=== PATIENT | female | born 1975 | race Caucasian/White ===

== ENCOUNTER 2017-07-29 19:41 | Emergency (ER) | payer OTHER ==
[2017-07-29 19:49] VITALS: BP 128/64; BMI 22.7
[2017-07-29] MEDS ORDERED: STERILE WATER IRRIGATION IR ONE ×2 (19:59)
[2017-07-29] MEDS ORDERED: XYLOCAINE 2 % (PLAIN) ONE (20:06)
[2017-07-29] MEDS ORDERED: XYLOCAINE 2 % (PLAIN) IJ ONE (20:06)
--- NOTE | 2017-07-29 20:14 | DR.GENAD ---
HPI - PCP Primary Care Physician: LIVIA SKINNER - HPI Comment HPI Comment: Was burning trash and felt something fly into her right ear. She tried to get it out and was unsuccessful. Pt has FB sensation and pain in her rt ear. No other injury. - Complaint/Symptoms Chief Complaint:: Patient reports she was outside burning leaves and something flew into her right ear and continues at this time. Patient reports pain and stinging in her right her. - Nurses notes reviewed Nurses Notes Review: Yes - Source History Provided: Patient - Mode of Arrival Mode of Arrival: Ambulatory - Timing Onset of Chief Complaint: 07/29/17 PMH - PMH Past Medical History: No (no contributory PMH) Past Surgical History: No - Family History History of Family Medical Conditions: No - Social History Type of Tobacco Use: None Lives Where: Home - infectious screening In the last 2 months have you had wt loss of >10#?: NO Have you had fever, night sweats or hemotysis?: No Have you traveled outside the country in the last 6 months?: No Isolation: Standard ROS - Review of Systems ENTM: See HPI, Ear Pain, Ear Foreign Body Respiratoy: No Symptoms Reported Cardiovascular: No Symptoms Reported Gastrointestinal/Abdominal: No Symptoms Reported Genitourinary: No Symptoms Reported Neurological: No Symptoms Reported, Dizziness Musculoskeletal: No Symptoms Reported Integumentary: No Symptoms Reported Hematologic/Lymphatic: No Symptoms Reported Endocrine: No Symptoms Reported Psychiatric: No Symptoms Reported All Other Systems: Reviewed and Negative PE - Vital Signs Vitals: Temperature 98 F Pulse Rate 133 Respiratory Rate 28 Blood Pressure 128/64 O2 Sat by Pulse Oximetry 96 - General Limitations: No Limitations General Appearance: Alert, In No Apparent Distress, Anxious - Head Head Exam: Normal Inspection - Eyes Eye exam: Normal Appearance - ENT ENT Exam: Normal External Ear Exam External Ear Exam: Normal External Inspection, Other (rt ear canal with erythema and excoriations, small amt bleeding, beetle seen at distal end of rt ear canal.) TM/Canal Exam: Right Canal Tenderness Nose Exam: Normal Nose Exam Mouth Exam: Normal Inspection Throat Exam: Normal Inspection - Neck Neck Exam: Normal Inspection - Chest Chest Inspection: Normal Inspection - Respiratory Respiratory Exam: Normal Lung Sounds Bilat Respiratory Exam: Bilateral Clear to Auscultation - Cardiovascular Cardiovascular Exam: Regular Rate Procedures - Procedure Comments Procedures: rt ear canal anesthetized with 2% lidocaine x 1 ml. Insect removed with suction cath connected to vacuum. Pt tolerated well. Cortisporin otic drops instilled, pt to use 2 drops rt ear QID x 5 days, return to ER for any concerns. - Diagnosis Discharge Problem: Foreign body in ear, unspecified ear, initial encounter - Discharge Plan Disposition: 01 HOME, SELF-CARE Condition: Good - Follow ups/Referrals Follow ups/Referrals: N[facility],None [Primary Care Provider] - 3 days - Instructions Instructions: Ear Foreign Body, [id number]
[2017-07-29] MEDS ORDERED: CORTISPORIN OTIC SUSP AFF EAR ONE (20:49)
[2017-07-29] MEDS ORDERED: CORTISPORIN OTIC SUSP ONE (20:49)
== END 2017-07-29 21:05 | disposition home or self-care (01) ==
LOC: ER 19:41
PROC: 09C Ear, Nose, Sinus, Extirpation (ICD-10-PCS; principal; 2017-07-29)
DX: T16.1XXA Foreign body in right ear, initial encounter (principal)
CPT/HCPCS: 10120; 99282; A4217; J2001